=== PATIENT | female | born 1940 | race Caucasian/White ===

== ENCOUNTER → 2016-12-09 | Outpatient (CLI) | payer MEDICARE, OTHER | END | disposition home or self-care (01) | LOC: GMAJ 11:23 | PROVIDERS: ATTEND Family Medicine | DX: Z79.899 Other long term (current) drug therapy (principal) ==

== ENCOUNTER → 2017-07-04 | Outpatient (CLI) | payer MEDICARE, OTHER | END | disposition home or self-care (01) | LOC: GMAJ 10:38 | PROVIDERS: ATTEND Family Medicine | DX: Z79.899 Other long term (current) drug therapy (principal) ==

== ENCOUNTER → 2017-11-27 | Outpatient (CLI) | payer MEDICARE, OTHER | LOC: GMAJ 10:46 | PROVIDERS: ATTEND Family Medicine | DX: Z79.899 Other long term (current) drug therapy (principal) ==

== ENCOUNTER → 2018-04-07 | Outpatient (CLI) | payer MEDICARE, OTHER | LOC: GMAJ 10:35 | PROVIDERS: ATTEND Family Medicine | DX: I10 Essential (primary) hypertension (principal); Z79.899 Other long term (current) drug therapy ==

== ENCOUNTER 2018-04-09 10:22 | Emergency (ER) | payer MEDICARE, OTHER ==
--- NOTE | 2018-04-09 10:56 | RAD ---
Study: Single Frontal View of the Chest. Indication:confusion Comparison: None. Impression: Mild cardiomegaly with mild interstitial edema. No pleural effusion or pneumothorax. Degenerative changes of the shoulders noted. Electronically signed by: Amol Weiner MD 04/09/2018 10:55 AM CDT
--- NOTE | 2018-04-09 11:09 | ED.PDOC ---
History of Present Illness - General Chief Complaint: Neuro Symptoms/Deficits Stated Complaint: Unsteady gait, altered mental status Time Seen by Provider: 04/09/18 11:09 Source: patient, family Exam Limitations: clinical condition - dementia - History of Present Illness Initial Comments: Araceli Wang 77 y/o female family stated that she wobbles when she walks yesterday and today as well noted slurred speech yesterday but speech better except sometimes she wobbles when she walks.But on arrival here at ER stated feels fine does not know why she was brought here and monitor showing elevated blood pressure.She has history of Dementia diagnosed in 2007. Timing/Duration: 24 hours Severity: moderate Episode Description: see hpi Improving Factors: nothing Worsening Factors: nothing Associated Symptoms: other - see hpi Allergies/Adverse Reactions: Allergies NO KNOWN ALLERGY Allergy (Verified 04/09/18 10:36) Home Medications: Ambulatory Orders Donepezil Hydrochloride [Donepezil HCl] 10 mg PO DAILY 04/09/18 Lamotrigine [Lamotrigine] 100 mg PO BEDTIME 04/09/18 Lisinopril [Prinivil] 10 mg PO DAILY 04/09/18 Metoprolol Tartrate 100 mg PO BID 04/09/18 Pravastatin Sodium 80 mg PO BEDTIME 04/09/18 Review of Systems - Review of Systems Constitutional: States: no symptoms reported EENTM: States: no symptoms reported Respiratory: States: no symptoms reported Cardiology: States: no symptoms reported Gastrointestinal/Abdominal: States: no symptoms reported Genitourinary: States: no symptoms reported Musculoskeletal: States: no symptoms reported Skin: States: no symptoms reported Neurological: States: see HPI All other Systems: Reviewed and Negative, No Change from Baseline Past Medical History (General) - Patient Medical History Hx Hypertension: Yes Hx Other PMH: Yes - dementia; Surgical History: other - hysterectomy - Social History Hx Tobacco Use: No Hx Alcohol Use: No Hx Physical Abuse: No Hx Emotional Abuse: No Family Medical History - Family History Father Hx Cardiac Disease: Yes - dad Hx Family;Other: Dementia-dad/brother Physical Exam - Physical Exam General Appearance: Alert, Comfortable, No apparent distress Eye Exam: bilateral normal ENT Exam: normal ENT inspection, hearing grossly normal Neck: non-tender, full range of motion, supple, trachea midline Respiratory: chest non-tender, lungs clear, normal breath sounds Cardiovascular/Chest: normal peripheral pulses, regular rate, rhythm, no murmur Peripheral Pulses: radial,right: 2+, radial,left: 2+ Gastrointestinal/Abdominal: non tender, soft Back Exam: no CVA tenderness, no vertebral tenderness Extremities Exam: non-tender Mental Status: alert, 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 Exam: normal hearing, normal speech, PERRL Coordination/Gait: normal finger to nose Motor/Sensory: no motor deficit, no sensory deficit, no pronator drift Skin Exam: normal color, warm/dry Progress - Progress Progress: 04/09/18 14:12 Vital Signs - 8 hr 04/09/18 04/09/18 04/09/18 10:22 11:22 12:22 Temperature 97.2 F L Pulse Rate [ 53 L 59 L 50 L Apical] Respiratory 20 20 20 Rate Blood Pressure 234/104 209/93 192/86 [Left Arm] O2 Sat by Pulse 97 97 98 Oximetry - Results/Orders Results/Orders: Vital Signs - 8 hr 04/09/18 04/09/18 04/09/18 10:22 11:22 12:22 Temperature 97.2 F L Pulse Rate [ 53 L 59 L 50 L Apical] Respiratory 20 20 20 Rate Blood Pressure 234/104 209/93 192/86 [Left Arm] O2 Sat by Pulse 97 97 98 Oximetry 04/09/18 10:45 EKG STAT Laboratory Results - last 24 hr 04/09/18 04/09/18 04/09/18 10:36 10:46 10:46 WBC 7.4 RBC 4.31 Hgb 13.8 Hct 39.9 MCV 92.5 MCH 32.1 H MCHC 34.7 RDW 12.4 Plt Count 316 MPV 7.1 L Absolute Neuts (auto) 5.20 Absolute Lymphs (auto) 1.20 Absolute Monos (auto) 0.70 Absolute Eos (auto) 0.20 Absolute Basos (auto) 0.00 Neutrophils % 71.1 Lymphocytes % 15.8 L Monocytes % 9.7 H Eosinophils % 2.9 Basophils % 0.5 PT 10.0 INR 1.00 PTT (SP) 23.8 Sodium 137 Potassium 3.5 L Chloride 100 L Carbon Dioxide 30 Anion Gap 10.5 L BUN 7 Creatinine 0.79 BUN/Creatinine Ratio 8.9 L POC Glucose 125 H Random Glucose 116 H Serum Osmolality 272.8 L Lactic Acid 0.9 Calcium 10.0 Magnesium 2.1 Total Bilirubin 0.5 Direct Bilirubin < 0.1 Indirect Bilirubin 0.4 AST 21 ALT 13 Alkaline Phosphatase 43 Creatine Kinase 85 CK-MB (CK-2) 3.4 CK-MB (CK-2) % Not Reportable Troponin I < 0.02 Serum Total Protein 7.2 Albumin 4.4 Urine Color Urine Appearance Urine pH Ur Specific [place] Urine Protein Urine Glucose (UA) Urine Ketones Urine Blood Urine Nitrite Urine Bilirubin Urine Urobilinogen Ur Leukocyte Esterase Urine RBC Urine WBC Ur Epithelial Cells Urine Bacteria 04/09/18 12:35 WBC RBC Hgb Hct MCV MCH MCHC RDW Plt Count MPV Absolute Neuts (auto) Absolute Lymphs (auto) Absolute Monos (auto) Absolute Eos (auto) Absolute Basos (auto) Neutrophils % Lymphocytes % Monocytes % Eosinophils % Basophils % PT INR PTT (SP) Sodium Potassium Chloride Carbon Dioxide Anion Gap BUN Creatinine BUN/Creatinine Ratio POC Glucose Random Glucose Serum Osmolality Lactic Acid Calcium Magnesium Total Bilirubin Direct Bilirubin Indirect Bilirubin AST ALT Alkaline Phosphatase Creatine Kinase CK-MB (CK-2) CK-MB (CK-2) % Troponin I Serum Total Protein Albumin Urine Color Yellow Urine Appearance Clear Urine pH 7.5 Ur Specific [place] 1.015 Urine Protein Negative Urine Glucose (UA) Negative Urine Ketones Negative Urine Blood Negative Urine Nitrite Negative Urine Bilirubin Negative Urine Urobilinogen 0.2 Ur Leukocyte Esterase Negative Urine RBC 0 Urine WBC 0 Ur Epithelial Cells 3-5 Urine Bacteria 0 - EKG/XRAY/CT CT Ordered: Yes - Head-normal ct-head Stroke Information - Onset of Symptoms Symptoms of Stroke: Loss of Equilibrium Stroke Onset of Symptoms Date: 04/08/18 Stroke Onset of Symptoms Time: 07:00 - unknown - Contraindications Antithrombotic Contraindication: Treatment not indicated t-PA Contraindication: Drug Tx Not Indicated Departure - Departure Clinical Impression: Altered awareness, transient, Abnormality of gait due to impairment of balance Dementia Qualifiers: Dementia type: unspecified type Dementia behavioral disturbance: without behavioral disturbance Qualified Code(s): F03.90 - Unspecified dementia without behavioral disturbance Time of Disposition: 14:17 Disposition: Discharge to Home or Self Care Condition: Fair Departure Forms: ED Discharge - Pt. Copy, Patient Portal Self Enrollment Referrals: Vinny Wright MD [Primary Care Provider] - 1-2 Weeks Home Medications: Ambulatory Orders Donepezil Hydrochloride [Donepezil HCl] 10 mg PO DAILY 04/09/18 Lamotrigine [Lamotrigine] 100 mg PO BEDTIME 04/09/18 Lisinopril [Prinivil] 10 mg PO DAILY 04/09/18 Metoprolol Tartrate 100 mg PO BID 04/09/18 Pravastatin Sodium 80 mg PO BEDTIME 04/09/18 Additional Instructions: NEED TO INCREASE DOSE OF LISINOPRIL -10 ONE TABLET AM/PM ;RETURN TO EMERGENCY ROOM IF SYMPTOMS WORSENS;KEEP APPOINTMENT WITH DR. WRIGHT 21 APRIL 2018
[2018-04-09] MEDS ORDERED: NITROGLYCERIN 0.4 MG 25 EA TAB SL ONE (11:11)
[2018-04-09] MEDS ORDERED: amLODIPine BESYLATE 5 MG TAB PO ONE (11:40)
[2018-04-09] MEDS ORDERED: LISINOPRIL 10 MG TAB PO ONE (11:40)
--- NOTE | 2018-04-09 11:57 | CT ---
EXAM DESCRIPTION: Head CLINICAL HISTORY: AMS COMPARISON: MRI brain dated 18 July 2008 TECHNIQUE: Non contrast cranial CT.This exam was performed according to our departmental dose-optimization program, which includes automated exposure control, adjustment of the mA and/or kV according to patient size and/or use of iterative reconstruction technique. FINDINGS: Portions of the paranasal sinuses and orbits imaged are normal. The mastoid sinus air cells are clear. No intracranial hemorrhage is observed. No mass lesions or mass effect are observed. The ventricles and cisternal spaces are within range of normal. IMPRESSION: Normal CT head Electronically signed by: Sánchez Villegas MD 04/09/2018 11:56 AM CDT
[2018-04-09 13:05] VITALS: TEMP 97.2
[2018-04-09 14:28] VITALS: BP 180/77; O2SAT 97
== END 2018-04-09 14:25 | disposition home or self-care (01) ==
LOC: ER 10:22
DX: R41.82 Altered mental status, unspecified (principal); R26.9 Unspecified abnormalities of gait and mobility; F03.90 Unspecified dementia, unspecified severity, without behavioral disturbance, psychotic disturbance, mood disturbance, and anxiety; R47.81 Slurred speech; I10 Essential (primary) hypertension; Z79.899 Other long term (current) drug therapy

== ENCOUNTER 2018-04-12 14:06 | Emergency (ER) | payer MEDICARE, OTHER ==
[2018-04-12 14:29] VITALS: TEMP 97.6
[2018-04-12] MEDS ORDERED: amLODIPine BESYLATE 5 MG TAB PO ONE (14:40)
--- NOTE | 2018-04-12 14:43 | ED.PDOC ---
History of Present Illness - General Chief Complaint: Blood Pressure Problem Stated Complaint: elevated bp Time Seen by Provider: 04/12/18 14:40 Source: family Exam Limitations: other - History of Present Illness Initial Comments: patient comes in with elevated blood pressure for the last several days. She was seen here on Friday and they were told to double up on her lisinopril. However, her blood pressure remains between 180 and 210 systolic and 70 diastolic. On Friday she actually had headache and ataxia but that resolved with lowering of her blood pressure. Currently she is asymptomatic and has no vision change, chest pain, altered LOC, shortness of breath, nausea or vomiting. She has no difficulty urinating. However, her ability to give her history is somewhat limited by dementia. Timing/Duration: other - 2-3 days Severity: mild Improving Factors: nothing Worsening Factors: nothing Allergies/Adverse Reactions: Allergies NO KNOWN ALLERGY Allergy (Verified 04/12/18 14:32) Home Medications: Ambulatory Orders Donepezil Hydrochloride [Donepezil HCl] 10 mg PO DAILY 04/09/18 Lamotrigine [Lamotrigine] 100 mg PO BEDTIME 04/09/18 Lisinopril [Prinivil] 10 mg PO DAILY 04/09/18 Metoprolol Tartrate 100 mg PO BID 04/09/18 Pravastatin Sodium 80 mg PO BEDTIME 04/09/18 Review of Systems - Review of Systems Constitutional: States: no symptoms reported. Denies: chills, fever EENTM: States: no symptoms reported Respiratory: States: no symptoms reported Cardiology: States: no symptoms reported Gastrointestinal/Abdominal: States: no symptoms reported Genitourinary: States: no symptoms reported Past Medical History (General) - Patient Medical History Hx Stroke: No Hx Dementia: Yes Hx Congestive Heart Failure: No Hx Hypertension: Yes Hx Diabetes: No Hx MRSA: No - Vaccination History Hx Influenza Vaccination: Yes - 2016 Hx Pneumococcal Vaccination: Yes - 2016 - Social History Hx Tobacco Use: No Hx Alcohol Use: No Hx Physical Abuse: No Hx Emotional Abuse: No Family Medical History - Family History Father Family History: Unknown Living Status: Hx Cardiac Disease: Yes - dad Hx Family;Other: Dementia-dad/brother Physical Exam - Physical Exam General Appearance: Alert, No apparent distress Eye Exam: bilateral normal Ears, Nose, Throat: hearing grossly normal, normal ENT inspection, normal pharynx Neck: non-tender, full range of motion, normal inspection Respiratory: chest non-tender, lungs clear, normal breath sounds, no respiratory distress Cardiovascular/Chest: normal peripheral pulses, regular rate, rhythm, no edema, no gallop, no JVD, no murmur Peripheral Pulses: radial,right: 2+, radial,left: 2+ Gastrointestinal/Abdominal: normal bowel sounds, non tender, soft 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 She will follow up in am with PCP to discuss any medication change Departure - Departure Clinical Impression: Hypertensive urgency Disposition: Discharge to Home or Self Care Condition: Good Departure Forms: ED Discharge - Pt. Copy, Patient Portal Self Enrollment Instructions: DI for High Blood Pressure Diet: low salt diet Activity: walking as tolerated Referrals: Vinny Wright MD [Primary Care Provider] - 1-2 Weeks Home Medications: Ambulatory Orders Donepezil Hydrochloride [Donepezil HCl] 10 mg PO DAILY 04/09/18 Lamotrigine [Lamotrigine] 100 mg PO BEDTIME 04/09/18 Lisinopril [Prinivil] 10 mg PO DAILY 04/09/18 Metoprolol Tartrate 100 mg PO BID 04/09/18 Pravastatin Sodium 80 mg PO BEDTIME 04/09/18 Additional Instructions: follow up in a.m. with PCP to discuss if increasing her blood pressure medication as necessary. She was given a one-time dose of Norvasc here ton but will need follow-up for further medication. In the meantime she Should continue to increase lisinopril as instructed on Friday. Return to ER for headache, altered LOC, shortness of breath, chest pain, or systolic blood pressure consistently greater than 180 or diastolic greater than 100. Patient' s blood pressure should not be rechecked more often than every 20 minutes
[2018-04-12 15:52] VITALS: BP 195/85; O2SAT 96
== END 2018-04-12 15:58 | disposition home or self-care (01) ==
LOC: ER 14:06
DX: I16.0 Hypertensive urgency (principal); F03.90 Unspecified dementia, unspecified severity, without behavioral disturbance, psychotic disturbance, mood disturbance, and anxiety; Z79.899 Other long term (current) drug therapy

== ENCOUNTER → 2020-04-18 | Outpatient (CLI) | payer MEDICARE, OTHER | LOC: YCHH 09:39 | PROVIDERS: ATTEND Family Medicine | DX: D64.9 Anemia, unspecified (principal); E78.5 Hyperlipidemia, unspecified; R79.89 Other specified abnormal findings of blood chemistry; R94.5 Abnormal results of liver function studies; R74.8 Abnormal levels of other serum enzymes ==

== ENCOUNTER → 2020-08-17 | Outpatient (CLI) | payer MEDICARE, OTHER | LOC: YCHH 09:53 | PROVIDERS: ATTEND Family Medicine | DX: N18.9 Chronic kidney disease, unspecified (principal); G30.9 Alzheimer's disease, unspecified; D64.9 Anemia, unspecified; K74.60 Unspecified cirrhosis of liver; E78.5 Hyperlipidemia, unspecified; I25.10 Atherosclerotic heart disease of native coronary artery without angina pectoris ==